=== PATIENT | male | born 1960 | race American Indian/Alaskan Native ===

== ENCOUNTER 2016-07-09 21:31 | Emergency (ER) | payer OTHER ==
[2016-07-09 21:32] VITALS: BMI 21.7
[2016-07-09 22:14] VITALS: BP 106/71; PULSE 109; RESP 16; TEMP 97.5; O2SAT 97
[2016-07-09] MEDS ORDERED: Naloxone 0.4 mg/ml Inj (Adult) IV ONE (22:50)
[2016-07-09 23:03] LABS: CHLORIDE 99 mmol/L (98-107); POTASSIUM 4.2 mmol/L (3.6-5.2); SODIUM 139 mmol/L (132-148)
[2016-07-09 23:05] LABS: BILIRUBIN,TOTAL 0.5 mg/dL (0.2-1.3); CARBON DIOXIDE 24 mmol/L (22-30); GFR AFRICAN-AMERICAN > 60
[2016-07-09 23:06] LABS: ALKALINE PHOSPHATASE 92 U/L (38-126); ALT/SGPT 51 U/L (21-72); AST/SGOT 61 U/L (17-59); BLOOD UREA NITROGEN 18 mg/dL (9-20); CALCIUM 8.8 mg/dl (8.6-10.4); GLUCOSE,RANDOM 149 mg/dL (75-110); TOTAL PROTEIN 7.8 g/dL (6.3-8.3)
[2016-07-09 23:07] LABS: ALCOHOL SERUM 257 mg/dl (0-10)
[2016-07-09] MEDS ORDERED: Naloxone 0.4 mg/ml Inj (Adult) ONE (23:12)
[2016-07-09 23:15] LABS: BASO % 0.5 % (0.0-2.0); EOS # 0.2 K/uL (0.0-0.7); HEMATOCRIT 42.2 % (35.0-51.0); LYMPH # 2.5 K/uL (1.0-4.3); LYMPH % 46.2 % (20.0-40.0); MEAN CELL VOLUME 71.9 fL (80.0-94.0); MEAN CORPUSCULAR HEMOGLOBIN 22.4 pg (27.0-31.0); MEAN CORPUSCULAR HGB CONC 31.2 g/dL (33.0-37.0); MEAN PLATELET VOLUME 9.5 fL (7.2-11.7); MONO # 0.5 K/uL (0.0-0.8); NRBC % 0.1 % (0.0-2.0); RED CELL DISTRIBUTION WIDTH 14.1 % (11.5-14.5); WHITE BLOOD COUNT 5.4 K/uL (4.8-10.8)
--- NOTE | 2016-07-09 23:16 | C.PDOC ---
History Of Present Illness 56 year old patient, with a past medical history of diabetes, pancreatitis, hypertension, presents to the ED complaining of being tired and dizzy. Patient is homeless and brought a large quantity of belongings with him. Patient admits to alcohol use, but denies any heroin use. Patient was seen at [facility] on 06/03/16 and was positive for opiate use. Patient denies fever, chest pain, shortness of breath, nausea, vomiting, or any other complaints at this time. Time Seen by Provider: 07/09/16 22:29 Chief Complaint (Nursing): Dizziness/Lightheaded History Per: Patient History/Exam Limitations: intoxication Onset/Duration Of Symptoms: Other Current Symptoms Are (Timing): Still Present Severity: None Pain Scale Rating Of: 0 Recent travel outside of the [place]: No Past Medical History Reviewed: Historical Data, Nursing Documentation, Vital Signs Vital Signs: Last Vital Signs Temp 97.5 F L 07/09/16 22:10 Pulse 109 H 07/09/16 22:10 Resp 16 07/09/16 22:10 BP 106/71 07/09/16 22:10 Pulse Ox 97 07/10/16 02:46 - Medical History PMH: Diabetes, Fractures (rib), HTN, Pancreatitis - [facility] Procedures INJECT/INFUSE NEC (11/30/14) Family History: States: Unknown Family Hx - Social History Hx Tobacco Use: Yes Hx Alcohol Use: Yes Hx Substance Use: No (DENIED) - Immunization History Hx Tetanus Toxoid Vaccination: No Hx Influenza Vaccination: No Hx Pneumococcal Vaccination: No Review Of Systems Except As Marked, All Systems Reviewed And Found Negative. Constitutional: Negative for: Fever Cardiovascular: Negative for: Chest Pain Respiratory: Negative for: Shortness of Breath Gastrointestinal: Negative for: Nausea, Vomiting Neurological: Positive for: Dizziness Physical Exam - Physical Exam Appears: Other (lethargic; EtOH on breath) Skin: Warm, Dry Head: Atraumatic, Normacephalic Eye(s): bilateral: EOMI, Other (pinpoint pupils) Neck: Normal ROM, Supple Chest: Symmetrical Cardiovascular: Rhythm Regular (tachycardic) Respiratory: Normal Breath Sounds, No Rales, No Rhonchi, No Wheezing Gastrointestinal/Abdominal: No Soft, No Tenderness Back: Normal Inspection, No CVA Tenderness Extremity: Normal ROM Neurological/Psych: Oriented x3 ED Course And Treatment - Laboratory Results Result Diagrams: 07/09/16 23:13 07/09/16 22:32 Lab Interpretation: Abnormal (etoh 257 H) O2 Sat by Pulse Oximetry: 97 (RA) Pulse Ox Interpretation: Normal Progress Note: narcan IV. blood sugar 141 mg/dL Reevaluation Time: 23:23 Reassessment Condition: Improved (immediatly after narcan pt is wide awake, indignant that we ask for a urine sample, though denies persistent heroine abuse he will not offer a urine sample. + tox opiates in recent ED visit.) Medical Decision Making Medical Decision Making: opiate (probably heroine) and alcohol abuse. opiate + @ [facility] ED 06/03/16 Disposition Doctor Will See Patient In The: Office Counseled Patient/Family Regarding: Studies Performed, Diagnosis - Disposition Referrals: Alcoholics Anonymous [Outside] [facility] [Outside] [facility] [Outside] Disposition: HOME/ ROUTINE Disposition Time: 23:26 Condition: GOOD Additional Instructions: seek a drug detox program (list given) Stop alcohol abuse- seek AA Instructions: Narcotic Abuse (ED), Abuse of Alcohol (ED) - Clinical Impression Clinical Impression: Polysubstance abuse, Alcohol abuse, Narcotic abuse - Scribe Statement The provider has reviewed the documentation as recorded by the Scribmoody Galeano Provider Attestation: All medical record entries made by the Scribe were at my direction and personally dictated by me. I have reviewed the chart and agree that the record accurately reflects my personal performance of the history, physical exam, medical decision making, and the department course for this patient. I have also personally directed, reviewed, and agree with the discharge instructions and disposition.
== END 2016-07-09 23:46 | disposition home or self-care (01) ==
LOC: C.ER 21:31
DX: F10.120 Alcohol abuse with intoxication, uncomplicated (principal); F11.10 Opioid abuse, uncomplicated; Y90.8 Blood alcohol level of 240 mg/100 ml or more; Z59.0 Homelessness
CPT/HCPCS: 80053; 80320; 82948; 85025; 99285; J2310

== ENCOUNTER 2017-04-28 10:43 | Emergency (ER) | payer OTHER ==
[2017-04-28 10:58] VITALS: BMI 22.4
[2017-04-28 11:02] VITALS: RESP 18; O2SAT 98
--- NOTE | 2017-04-28 11:25 | C.PDOC ---
History Of Present Illness REQUESTING ETOH AND COCAINE DETOX. LAST USE @ 0200. CURRENTLY ASYMPT. COMPLIANT W DM MEDS. PS TRAVELS TO DIFFERENT STATES FOR WORK, PREV MISSED DETOX OPENING DUE TO TRAVEL EXAM NAD NONTOXIC APPEARS COMFORT NO INTOX, MILD ANXIETY BUT CALM COOPERATIVE REMAINDER NEG MDM D/W CRISIS, NO DETOX BEDS AVAIL. PT ENCOURAGED TO PRESCREEN, ALT DETOX CTR INFO GIVEN Time Seen by Provider: 04/28/17 11:07 Chief Complaint (Nursing): Substance Abuse History Per: Patient History/Exam Limitations: no limitations Onset/Duration Of Symptoms: Days Past Medical History Reviewed: Historical Data, Nursing Documentation, Vital Signs Vital Signs: Last Vital Signs Temp 97.7 F 04/28/17 10:57 Pulse 85 04/28/17 10:57 Resp 18 04/28/17 10:57 BP 154/110 H 04/28/17 10:57 Pulse Ox 98 04/28/17 11:50 - Medical History PMH: Diabetes, Fractures (rib), HTN, Pancreatitis - [facility] Procedures INJECT/INFUSE NEC (11/30/14) Family History: States: No Known Family Hx - Social History Hx Tobacco Use: Yes Hx Alcohol Use: Yes (VODKA) Hx Substance Use: Yes (COCAINE FOR 3 YEARS) - Immunization History Hx Tetanus Toxoid Vaccination: No Hx Influenza Vaccination: Yes Hx Pneumococcal Vaccination: No Review Of Systems Except As Marked, All Systems Reviewed And Found Negative. Constitutional: Negative for: Fever Cardiovascular: Negative for: Chest Pain Respiratory: Negative for: Shortness of Breath Neurological: Negative for: Weakness, Numbness Psych: Negative for: Suicidal ideation Physical Exam - Physical Exam Appears: Non-toxic, No Acute Distress, Other ((+) comfortable, no intoxication, mild anxiety but calm) Skin: Warm, Dry, No Rash Head: Atraumatic, Normacephalic Eye(s): bilateral: Normal Inspection, PERRL, EOMI Oral Mucosa: Moist Chest: Symmetrical, No Tenderness Cardiovascular: Rhythm Regular, No Murmur Respiratory: Normal Breath Sounds, No Rales, No Rhonchi, No Stridor, No Wheezing Extremity: Normal ROM, No Swelling Neurological/Psych: Oriented x3, Normal Speech, Normal Motor, Normal Sensation ED Course And Treatment O2 Sat by Pulse Oximetry: 98 (RA) Pulse Ox Interpretation: Normal Medical Decision Making Medical Decision Making: NOTE: * Discussed with crisis. No detox beds available at this time. * Patient is encouraged to be pre-screened. * Alternate detox center info is given. Disposition Counseled Patient/Family Regarding: Diagnosis, Need For Followup - Disposition Referrals: [facility] [Other] Disposition: HOME/ ROUTINE Disposition Time: 11:25 Condition: GOOD Prescriptions: Gabapentin 2 tab PO TID #180 capsule Insulin Glargine,Hum.rec.anlog [Basaglar Kwikpen U-100] 100 unit SQ PRN PRN #1 insuln.pen PRN Reason: Other Insulin Human Regular [Novolin R] 100 unit IV PRN PRN #1 unit PRN Reason: Other Instructions: Abuse of Alcohol (ED) Forms: [employer] (Wol[place]) - Clinical Impression Clinical Impression: Alcohol use, Cocaine abuse - Scribe Statement The provider has reviewed the documentation as recorded by the Shirley Venegas Provider Attestation: All medical record entries made by the Scribe were at my direction and personally dictated by me. I have reviewed the chart and agree that the record accurately reflects my personal performance of the history, physical exam, medical decision making, and the department course for this patient. I have also personally directed, reviewed, and agree with the discharge instructions and disposition.
[2017-04-28 12:37] VITALS: BP 144/99; PULSE 88; TEMP 97.9
== END 2017-04-28 12:39 | disposition home or self-care (01) ==
LOC: C.ER 10:43
DX: F14.10 Cocaine abuse, uncomplicated (principal); Z72.89 Other problems related to lifestyle; E11.9 Type 2 diabetes mellitus without complications; I10 Essential (primary) hypertension; Z87.891 Personal history of nicotine dependence

== ENCOUNTER 2017-04-29 10:57 | Emergency (ER) | payer OTHER ==
[2017-04-29 10:57] VITALS: BMI 22.4
[2017-04-29 11:11] VITALS: BP 178/105; PULSE 85; RESP 18; TEMP 97.6; O2SAT 100
--- NOTE | 2017-04-29 11:44 | C.PDOC ---
History Of Present Illness 57 year old male presents to ED requesting detox from alcohol and drugs. Notes last drink was last night. Denies tremors, headache, dizziness, abdominal pain, n/v/d, chest pain, or shortness of breath. Blood pressure was noted to be high, pt admits to not taking his BP medication today. Chief Complaint (Nursing): Substance Abuse History Per: Patient History/Exam Limitations: no limitations Onset/Duration Of Symptoms: Gradual Current Symptoms Are (Timing): Still Present Suicide/Self Injury Attempted (Context): None Modifying Factor(s): Alcohol Severity: None Pain Scale Rating Of: 0 Associated Symptoms: denies: Suicidal Thoughts, Suicidal Plan Involuntary Hold By: None Recent travel outside of the [place]: No Additional History Per: Patient Past Medical History Reviewed: Historical Data, Nursing Documentation, Vital Signs Vital Signs: Last Vital Signs Temp 97.6 F 04/29/17 11:07 Pulse 85 04/29/17 11:07 Resp 18 04/29/17 11:07 BP 178/105 H 04/29/17 11:07 Pulse Ox 100 04/29/17 11:53 - Medical History PMH: Diabetes, Fractures (rib), HTN, Pancreatitis Denies: Hepatitis, HIV, Seizures, Sexually Transmitted Disease - [facility] Procedures INJECT/INFUSE NEC (11/30/14) Family History: States: Unknown Family Hx - Social History Hx Tobacco Use: Yes Hx Alcohol Use: Yes (VODKA) Hx Substance Use: Yes (COCAINE FOR 3 YEARS) - Immunization History Hx Tetanus Toxoid Vaccination: No Hx Influenza Vaccination: Yes Hx Pneumococcal Vaccination: No Review Of Systems Except As Marked, All Systems Reviewed And Found Negative. Constitutional: Negative for: Fever, Chills Cardiovascular: Negative for: Chest Pain, Palpitations, Light Headedness Respiratory: Negative for: Cough, Shortness of Breath Gastrointestinal: Negative for: Nausea, Vomiting, Abdominal Pain Neurological: Negative for: Headache, Dizziness Psych: Negative for: Suicidal ideation Physical Exam - Physical Exam Appears: Non-toxic, No Acute Distress Skin: Normal Color, Warm, Dry Head: Atraumatic, Normacephalic Eye(s): bilateral: Normal Inspection Oral Mucosa: Moist Neck: Normal ROM, Supple Cardiovascular: Rhythm Regular, No Murmur Respiratory: Normal Breath Sounds, No Rales, No Rhonchi, No Wheezing Gastrointestinal/Abdominal: Soft, No Tenderness Extremity: Normal ROM, No Deformity Neurological/Psych: Oriented x3, Normal Speech ED Course And Treatment O2 Sat by Pulse Oximetry: 100 (RA) Pulse Ox Interpretation: Normal Progress Note: Blood work and UA was ordered but cancelled becuase pt states he can no longer stay, and needs to go back to his work. Pt was given Clonidine. Pt was advised to follow up with PMD. Disposition - Disposition Disposition: HOME/ ROUTINE Disposition Time: 11:44 Condition: STABLE Additional Instructions: follow up with your PMD within 1-2 days. 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 - Scribe Statement The provider has reviewed the documentation as recorded by the Sarahibe Juan Ramon Galeano All medical record entries made by the Sarahibmoody were at my direction and personally dictated by me. I have reviewed the chart and agree that the record accurately reflects my personal performance of the history, physical exam, medical decision making, and the department course for this patient. I have also personally directed, reviewed, and agree with the discharge instructions and disposition.
== END 2017-04-29 12:21 | disposition home or self-care (01) ==
LOC: C.ER 10:57
DX: F19.10 Other psychoactive substance abuse, uncomplicated (principal); I10 Essential (primary) hypertension